=== PATIENT | female | born 1950 | race Caucasian/White ===

== ENCOUNTER 2017-09-08 17:10 | Emergency (ER) | payer MEDICARE, BC, OTHER ==
[2017-09-08] MEDS ORDERED: Phenylephrine 1% NASAL* 15 ML BOT BOTH NARES ONE (19:29)
[2017-09-08] MEDS ORDERED: Cephalexin CAP* 500 MG PO ONE ×2 (21:01→21:04)
[2017-09-08] MEDS ORDERED: Fluconazole 100 MG TAB* TAB PO ONE ×2 (21:02→21:03)
[2017-09-08 21:42] VITALS: BP 144/82
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
== END 2017-09-08 21:36 | disposition home or self-care (01) ==
LOC: UCEAST 17:10
DX: R04.0 Epistaxis (principal); R09.81 Nasal congestion; R53.1 Weakness; E11.9 Type 2 diabetes mellitus without complications; Z88.3 Allergy status to other anti-infective agents
CPT/HCPCS: 99213; A9270-GY; G0463